=== PATIENT | female | born 2000 | race Caucasian/White ===

== ENCOUNTER 2024-08-01 15:07 | Emergency (ER) | payer OTHER ==
[~2024-08-01] VITALS: Ht 152.4 cm; Wt 59.0 kg
[~2024-08-01 15:07] MED LIST: AMOXICILLIN500 M2 PO; ATARAX25 MG PO; BACTRIM DS 8001 TA1 PO; BIRTH CONTROL; FLEXERIL10 MG PO; MOTRIN400 MG PO; MOTRIN600 MG PO; NAPROSYN500 MG PO; ZOLOFT100 MG PO
[2024-08-01 16:02] LABS: BASO % 0.4 % (0.0-1.0); EOS # 0.1 10*3/uL (0.0-0.4); EOS % 1.2 % (1.0-4.0); MEAN CELL VOLUME 90.9 fl (81.0-99.0); MEAN CORPUSCULAR HGB 30.6 pg (27.0-31.0); MEAN CORPUSCULAR HGB CONC 33.7 g/dl (33.0-37.0); MEAN PLATELET VOLUME 10.2 fl (9.6-12.3); MONO # 0.6 10*3/uL (0.1-1.0); MONO % 8.2 % (3.0-9.0); NEUT # 4.6 10*3/uL (2.3-7.9); NEUT % 64.1 % (47.0-73.0); PLATELET COUNT AUTOMATED 238 10*3/uL (130-400); RED BLOOD COUNT 4.18 10*6/uL (4.10-5.10); RED CELL DISTRI WIDTH 12.1 % (0-14.5); WHITE BLOOD COUNT 7.2 10*3/uL (4.8-10.8)
[2024-08-01 16:25] LABS: BILIRUBIN Negative (Negative); BLOOD 3+ (Negative); CLARITY Cloudy (Clear); COLOR Yellow (Yellow); GLUCOSE Negative (Negative); KETONE Trace (Negative); LEUKO ESTERASE 2+ (Negative); NITRITE Negative (Negative); SPECIFIC GRAVITY >= 1.030 (1.001-1.030)
[2024-08-01 16:31] LABS: BACTERIA 1+; RBC TNTC rbc/hpf (0-2)
[2024-08-01 16:33] LABS: BUN 12 mg/dl (9-23); CHLORIDE 105 mmol/L (98-107); POTASSIUM 3.7 mmol/L (3.4-5.1)
[2024-08-01] MEDS ORDERED: CEPHALEXIN500 M1 PO (16:36)
== END 2024-08-01 17:06 | disposition home or self-care (01) ==
LOC: ED 15:07
PROVIDERS: Physician Assistant Medical
DX: O23.41 Unspecified infection of urinary tract in pregnancy, first trimester (principal); O20.9 Hemorrhage in early pregnancy, unspecified; N39.0 Urinary tract infection, site not specified; R10.2 Pelvic and perineal pain; F32.A Depression, unspecified; Z3A.01 Less than 8 weeks gestation of pregnancy; Z88.2 Allergy status to sulfonamides; Z88.8 Allergy status to other drugs, medicaments and biological substances; Z98.890 Other specified postprocedural states